=== PATIENT | male | born 1995 | race African-American/Black ===

== ENCOUNTER 2020-11-24 16:23 | Emergency (ER) | payer OTHER ==
[~2020-11-24] VITALS: Ht 182.9 cm; Wt 97.5 kg
[2020-11-24] MEDS ORDERED: NS 1,000 ML IV ONE (16:55)
[2020-11-24 17:39] LABS: BASO % 0.4 % (0.0-1.0); EOS # 0.1 10^3/uL (0.0-0.5); EOS % 1.2 % (0.0-3.0); HEMATOCRIT 49.5 % (42.0-52.0); LYMPH # 0.9 10^3/uL (1.5-5.0); LYMPH % 17.1 % (24.0-44.0); MEAN CORPUSCULAR HEMOGLOBIN 28.2 pg (27.0-33.0); MEAN CORPUSCULAR HGB CONC 32.3 g/dl (32.0-36.5); MEAN CORPUSCULAR VOLUME 87.3 fl (80.0-96.0); MONO # 0.6 10^3/uL (0.0-0.8); MONO % 11.7 % (2.0-8.0); NEUTROPHILS # 3.5 10^3/uL (1.5-8.5); NEUTROPHILS % 69.4 % (36.0-66.0); PLATELET COUNT, AUTOMATED 270 10^3/uL (150-450); RED BLOOD COUNT 5.67 10^6/uL (4.30-6.10)
[2020-11-24 18:04] LABS: ALBUMIN 3.9 GM/DL (3.2-5.2); ALT/SGPT 25 U/L (12-78); AMYLASE 63 U/L (25-115); BILIRUBIN,DIRECT 0.3 MG/DL (0.0-0.2); BLOOD UREA NITROGEN 16 MG/DL (7-18); CALCIUM LEVEL 8.7 MG/DL (8.5-10.1); CARBON DIOXIDE LEVEL 31 MEQ/L (21-32); CHLORIDE LEVEL 105 MEQ/L (98-107); CREATININE FOR GFR 1.17 MG/DL (0.70-1.30); GLOMERULAR FILTRATION RATE > 60.0 (>60); GLUCOSE, FASTING 76 MG/DL (70-100); LIPASE 77 U/L (73-393); SODIUM LEVEL 140 MEQ/L (136-145); TOTAL PROTEIN 7.6 GM/DL (6.4-8.2)
[2020-11-24] MEDS ORDERED: ZOFR4TAB16 PO (18:17)
[2020-11-24 18:57] VITALS: BP 135/71
== END 2020-11-24 18:59 | disposition home or self-care (01) ==
LOC: M ED 16:23
DX: R10.9 Unspecified abdominal pain (principal); R11.10 Vomiting, unspecified; R19.7 Diarrhea, unspecified

== ENCOUNTER 2021-03-15 15:18 | Emergency (ER) | payer OTHER ==
[~2021-03-15] VITALS: Ht 182.9 cm; Wt 95.5 kg
[~2021-03-15 15:18] MED LIST: ZOFR4TAB16 PO
[2021-03-15] MEDS ORDERED: IBUPROFEN 800 MG TAB PO ONE (19:05)
--- NOTE | 2021-03-15 19:52 | REP ---
INDICATION: trauma, lateral pain (recent surgery for tumor removal). COMPARISON: Left foot, 12/13/2015 TECHNIQUE: Four views of the left foot were obtained. FINDINGS: There is radiopaque material in the area of the inferolateral aspect of the cuboid, and this likely reflects the area of recent surgery. There is no evidence of fracture or dislocation. There is no significant arthropathy. There is no evidence of osteomyelitis. IMPRESSION: Apparent postoperative packing in the area of recent surgery at the lateral aspect of the cuboid, as described. <Electronically signed by Madhav Becerril > 03/15/211947
[2021-03-15 20:31] VITALS: BP 132/82
== END 2021-03-15 20:36 | disposition home or self-care (01) ==
LOC: M ED 15:18
DX: S93.602A Unspecified sprain of left foot, initial encounter (principal); Y92.009 Unspecified place in unspecified non-institutional (private) residence as the place of occurrence of the external cause; W01.0XXA Fall on same level from slipping, tripping and stumbling without subsequent striking against object, initial encounter; Y93.9 Activity, unspecified; Y99.9 Unspecified external cause status

== ENCOUNTER 2021-05-08 17:46 | Inpatient (IN) | payer OTHER ==
[~2021-05-08] VITALS: Ht 182.9 cm; Wt 98.3 kg
[2021-05-08] MEDS ORDERED: NS 1,000 ML IV SCH (17:55)
[2021-05-08 18:10] LABS: VENOUS BASE EXCESS -4.6 (-2.0-2.0); VENOUS HCO3 21.4 MEQ/L (23.0-27.0); VENOUS O2 SATURATION 90.4 % (60.0-80.0); VENOUS PARTIAL PRESSURE CO2 42.9 mmHg (38.0-50.0); VENOUS PARTIAL PRESSURE O2 60.3 mmHg (30.0-50.0); VENOUS PH 7.316 UNITS (7.330-7.430); VENOUS STANDARD HCO3 20.5 MEQ/L; VENOUS TOTAL CO2 22.7 MEQ/L (24.0-28.0)
[2021-05-08 18:24] LABS: BASO % 0.2 % (0.0-1.0); EOS % 0.2 % (0.0-3.0); HEMATOCRIT 46.5 % (42.0-52.0); HEMOGLOBIN 14.9 g/dl (13.5-17.5); LYMPH # 1.2 10^3/uL (1.5-5.0); LYMPH % 19.2 % (24.0-44.0); MEAN CORPUSCULAR HEMOGLOBIN 28.4 pg (27.0-33.0); MEAN CORPUSCULAR VOLUME 88.6 fl (80.0-96.0); MONO # 0.4 10^3/uL (0.0-0.8); MONO % 7.3 % (2.0-8.0); NEUTROPHILS # 4.4 10^3/uL (1.5-8.5); NEUTROPHILS % 72.9 % (36.0-66.0); PLATELET COUNT, AUTOMATED 303 10^3/uL (150-450); RED BLOOD COUNT 5.25 10^6/uL (4.30-6.10)
[2021-05-08 18:44] LABS: ACETAMINOPHEN LEVEL 3.1 UG/ML (10.0-30.0); ALT/SGPT 24 U/L (12-78); BILIRUBIN,DIRECT 0.2 MG/DL (0.0-0.2); BILIRUBIN,TOTAL 0.7 MG/DL (0.2-1.0); BLOOD UREA NITROGEN 12 MG/DL (7-18); CALCIUM LEVEL 9.2 MG/DL (8.5-10.1); CARBON DIOXIDE LEVEL 23 MEQ/L (21-32); CHLORIDE LEVEL 109 MEQ/L (98-107); ETHYL ALCOHOL (ETHANOL) < 0.003 % (0.000-0.010); GLOMERULAR FILTRATION RATE > 60.0 (>60); GLUCOSE, FASTING 90 MG/DL (70-100); POTASSIUM SERUM 4.2 MEQ/L (3.5-5.1); SALICYLATE LEVEL < 1.7 MG/DL (5.0-30.0); SODIUM LEVEL 141 MEQ/L (136-145); TOTAL PROTEIN 7.3 GM/DL (6.4-8.2)
--- NOTE | 2021-05-08 19:10 | REPVR ---
PROCEDURE INFORMATION: Exam: CT Head Without Contrast Exam date and time: 05/08/2021 6:33 PM Age: 25 years old Clinical indication: Altered mental status/memory loss TECHNIQUE: Imaging protocol: Computed tomography of the head without contrast. Radiation optimization: All CT scans at this facility use at least one of these dose optimization techniques: automated exposure control; mA and/or kV adjustment per patient size (includes targeted exams where dose is matched to clinical indication); or iterative reconstruction. COMPARISON: No relevant prior studies available. FINDINGS: Brain: Normal. No hemorrhage. Unremarkable white matter. No mass effect. Cerebral ventricles: No ventriculomegaly. Paranasal sinuses: Visualized sinuses are unremarkable. No fluid levels. Mastoid air cells: Visualized mastoid air cells are well aerated. Bones/joints: Unremarkable. No acute fracture. Soft tissues: Unremarkable. IMPRESSION: No acute intracranial abnormality. Electronically signed by: Lyssa De Leon On 05/08/2021 19:09:32 PM
--- OUTSIDE RECORDS SUMMARY | 2021-05-08 19:24 | CCD ---
Author Author [facility] Organization [facility] Address Unknown Phone Unavailable Care Team Providers Care Er Rn Name Role Phone YOLA JACOBS MD Unavailable Unavailable YOLA JACOBS MD Unavailable Unavailable YOLA JACOBS MD Unavailable Unavailable YOLA JACOBS MD Unavailable Unavailable YOLA JACOBS MD Unavailable Unavailable YOLA JACOBS MD Unavailable Unavailable YOLA JACOBS MD Unavailable Unavailable YOLA JACOBS MD Unavailable Unavailable YOLA JACOBS MD Unavailable Unavailable YOLA JACOBS MD Unavailable Unavailable YOLA JACOBS MD Unavailable Unavailable YOLA JACOBS MD Unavailable Unavailable YOLA JACOBS MD Unavailable Unavailable YOLA JACOBS MD Unavailable Unavailable YOLA JACOBS MD Unavailable Unavailable Yuniel Mijares MD Unavailable Unavailable Yuniel Mijares MD Unavailable Unavailable Yuniel Mijares MD Unavailable Unavailable Dyllan, Yuniel Corey MD Unavailable Unavailable Dyllan, Yuniel Corey MD Unavailable Unavailable Dyllan, Yuniel Corey MD Unavailable Unavailable Yuniel Mijares MD Unavailable Unavailable Yuniel Mijares MD Unavailable Unavailable Yuniel Mijares MD Unavailable Unavailable Yuniel Mijares MD Unavailable Unavailable Dyllan, Yuniel Corey MD Unavailable Unavailable Dyllan, Yuniel Corey MD Unavailable Unavailable Dyllan, Yuniel Corey MD Unavailable Unavailable Dyllan, Yuniel Corey MD Unavailable Unavailable Dyllan, Yuniel Corey MD Unavailable Unavailable Dyllan, Yuniel Corey MD Unavailable Unavailable Dyllan, Yuniel Corey MD Unavailable Unavailable Dyllan, Yuniel Corey MD Unavailable Unavailable Dyllan, Yuniel Corey MD Unavailable Unavailable Dyllan, Yuniel Corey MD Unavailable Unavailable Dyllan, Yuniel Corey MD Unavailable Unavailable Dyllan, Yuniel Corey MD Unavailable Unavailable Dyllan, A Madhav MD Unavailable Unavailable Dyllan, A Madhav MD Unavailable Unavailable Dyllan, A Madhav MD Unavailable Unavailable Dyllan, A Madhav MD Unavailable Unavailable Dyllan, A Madhav MD Unavailable Unavailable Dyllan, A Madhav MD Unavailable Unavailable Dyllan, A Madhav MD Unavailable Unavailable Dyllan, A Madhav MD Unavailable Unavailable Dyllan, A Madhav MD Unavailable Unavailable Dyllan, A Madhav MD Unavailable Unavailable Dyllan, A Madhav MD Unavailable Unavailable Dyllan, A Madhav MD Unavailable Unavailable Dyllan, A Madhav MD Unavailable Unavailable Dyllan, A Madhav MD Unavailable Unavailable Dyllan, A Madhav MD Unavailable Unavailable Dyllan, A Madhav MD Unavailable Unavailable Dyllan, A Mahdav MD Unavailable Unavailable Dyllan, A Madhav MD Unavailable Unavailable Dyllan, A Madhav MD Unavailable Unavailable Dyllan, A Madhav MD Unavailable Unavailable Dyllan, A Madhav MD Unavailable Unavailable Dyllan, A Madhav MD Unavailable Unavailable Dyllan, A Madhav MD Unavailable Unavailable Dyllan, A Madhav MD Unavailable Unavailable Dyllan, A Madhav MD Unavailable Unavailable Dyllan, A Madhav MD Unavailable Unavailable Dyllan, A Madhav MD Unavailable Unavailable Dyllan, A Madhav MD Unavailable Unavailable Dyllan, A Madhav MD Unavailable Unavailable Dyllan, A Madhav MD Unavailable Unavailable Dyllan, A Madhav MD Unavailable Unavailable Dyllan, A Madhav MD Unavailable Unavailable Dyllan, A Madhav MD Unavailable Unavailable Dyllan, A Madhav MD Unavailable Unavailable Dyllan, A Madhav MD Unavailable Unavailable Dyllan, A Madhav MD Unavailable Unavailable Dyllan, A Madhav MD Unavailable Unavailable Dyllan, A Madhav MD Unavailable Unavailable Dyllan, A Madhav MD Unavailable Unavailable Dyllan, A Madhav MD Unavailable Unavailable Dyllan, A Madhav MD Unavailable Unavailable Dyllan, A Madhav MD Unavailable Unavailable Dyllan, A Madhav MD Unavailable Unavailable Dyllan, A Madhav MD Unavailable Unavailable Dyllan, A Madhav MD Unavailable Unavailable Dyllan, A Madhav MD Unavailable Unavailable Dyllan, A Madhav MD Unavailable Unavailable Dyllan, A Madhav MD Unavailable Unavailable Dyllan, A Madhav MD Unavailable Unavailable Dyllan, A Madhav MD Unavailable Unavailable Dyllan, A Madhav MD Unavailable Unavailable Dyllan, A Madhav MD Unavailable Unavailable Dyllan, A Madhav MD Unavailable Unavailable Dyllan, A Madhav MD Unavailable Unavailable Dyllan, A Madhav MD Unavailable Unavailable Dyllan, A Madhav MD Unavailable Unavailable Dyllan, A Madhav MD Unavailable Unavailable Dyllan, A Madhav MD Unavailable Unavailable Dyllan, A Madhav MD Unavailable Unavailable Dyllan, A Madhav MD Unavailable Unavailable Dyllan, A Madhav MD Unavailable Unavailable Dyllan, A Madhav MD Unavailable Unavailable Dyllan, A Madhav MD Unavailable Unavailable Dyllan, A Madhav MD Unavailable Unavailable Dyllan, A Madhav MD Unavailable Unavailable Dyllan, A Madhav MD Unavailable Unavailable Dyllan, A Madhav MD Unavailable Unavailable Dyllan, A Madhav MD Unavailable Unavailable Dyllan, A Madhav MD Unavailable Unavailable Dyllan, A Madhav MD Unavailable Unavailable Dyllan, A Madhav MD Unavailable Unavailable Dyllan, A Madhav MD Unavailable Unavailable Dyllan, A Madhav MD Unavailable Unavailable Dyllan, A Madhav MD Unavailable Unavailable Dyllan, A Madhav MD Unavailable Unavailable Dyllan, A Madhav MD Unavailable Unavailable Dyllan, A Madhav MD Unavailable Unavailable Dyllan, A Madhav MD Unavailable Unavailable Dyllan, A Madhav MD Unavailable Unavailable Dyllan, A Madhav MD Unavailable Unavailable Dyllan, A Madhav MD Unavailable Unavailable Dyllan, A Madhav MD Unavailable Unavailable Dyllan, A Madhav MD Unavailable Unavailable Dyllan, A Madhav MD Unavailable Unavailable Dyllan, A Madhav MD Unavailable Unavailable Dyllan, A Madhav MD Unavailable Unavailable Dyllan, A Madhav MD Unavailable Unavailable Dyllan, A Madhav MD Unavailable Unavailable Dyllan, A Madhav MD Unavailable Unavailable Dyllan, A Madhav MD Unavailable Unavailable Dyllan, A Madhav MD Unavailable Unavailable Dyllan, A Madhav MD Unavailable Unavailable Dyllan, A Madhav MD Unavailable Unavailable Dyllan, A Madhav MD Unavailable Unavailable Dyllan, A Madhav MD Unavailable Unavailable Dyllan, A Madhav MD Unavailable Unavailable Re-disclosure Warning The records that you are about to access may contain information from federally-assisted alcohol or drug abuse programs. If such information is present, then the following federally mandated warning applies: This information has been disclosed to you from records protected by federal confidentiality rules (42 CFR part 2). The federal rules prohibit you from making any further disclosure of this information unless further disclosure is expressly permitted by the written consent of the person to whom it pertains or as otherwise permitted by 42 CFR part 2. A general authorization for the release of medical or other information is NOT sufficient for this purpose. The Federal rules restrict any use of the information to criminally investigate or prosecute any alcohol or drug abuse patient.The records that you are about to access may contain highly sensitive health information, the redisclosure of which is protected by Article 27-F of the [facility] Public Health law. If you continue you may have access to information: Regarding HIV / AIDS; Provided by facilities licensed or operated by the [facility] Office of Mental Health; or Provided by the [facility] Office for People With Developmental Disabilities. If such information is present, then the following [facility] mandated warning applies: This information has been disclosed to you from confidential records which are protected by state law. State law prohibits you from making any further disclosure of this information without the specific written consent of the person to whom it pertains, or as otherwise permitted by law. Any unauthorized further disclosure in violation of state law may result in a fine or alf sentence or both. A general authorization for the release of medical or other information is NOT sufficient authorization for further disc losure. Encounters Encounter Providers Location Date Indications Data Source(s ) Outpatient Attender: Madhav Mijares MD 07/01/2021 12:00:00 AM [facility] Outpatient Referrer: Madhav Mijares MD 04/22/2021 12 :00:00 AM EDT Neoplasm of uncertain behavior of connective and other soft tissue [facility] Neoplasm of uncertain behavior of connec tive and other soft tissue Outpatient Attender: Madhav BRIONESeferrer: EDWAR JACOBS MD [id number] 04/22/2021 12:00:00 AM [facility] Outpatient Attender: Madhav BRIONESeferrer: EDWAR JACOBS MD [id number] 03/22/2021 12:00:00 AM [facility] Outpatient Referrer: Madhav Mijares MD 03/06/2021 09 :00:00 AM EDT Other specified soft tissue disorders [facility] Other specified soft tissue disorders Outpatient 03/06/2021 12:00:00 AM [facility] Outpatient Attender: Madhav Elizondoerrer: EDWAR JACOBS MD [id number] 02/01/2021 12:00:00 AM [facility] Outpatient Referrer: Madhav Mijares MD 01/21/2021 12 :00:00 AM EDT Other specified soft tissue disorders [facility] Other specified soft tissue disorders Outpatient Attender: Madhav Mijares MDReferrer: EDWAR JACOBS MD [id number] 01/04/2021 12:00:00 AM EDT [facility] Outpatient Referrer: Madhav Mijares MD 01/04/2021 12 :00:00 AM EDT Disorder of bone, unspecified [facility] Disorder of bone, unspecified Outpatient Referrer: Madhav Mijares MD 01/04/2021 12 :00:00 AM EDT Disorder of bone, unspecified [facility] Disorder of bone, unspecified Outpatient Attender: Madhav Mijares MDReferrer: EDWAR JACOBS MD [id number] 12/03/2020 12:00:00 AM EDT [facility] Immunizations Vaccine Date Status Description Data Source(s) COVID-19 VACCINE Moderna 11/15/2020 12:00:00 AM EDT completed [facility] Vaccine Series Complete: YESThis Data wa s Submitted to [facility] Via [facility]. COVID-19 VACCINE Moderna 10/18/2020 12:00:00 AM EDT completed [facility] Vaccine Series Complete: NOThis Data was Submitted to [facility] Via [facility]. Medications No Information Insurance Providers Payer name Policy type / Coverage type Policy ID Covered libertarian ID Covered libertarian's relationship to sin Policy Sin Plan Information [facility] U [id number] Self [id number] [facility] F [id number] SELF [id number] [facility] F [id number] SELF [id number] [facility] Claims F [id number] SELF [id number] [facility] U [id number] Self [id number] [facility] O [id number] S [id number] [facility] ACTIVE DUTY [id number] SP [id number] [facility] ACTIVE DUTY [id number] SP [id number] Problems, Conditions, and Diagnoses Code Display Name Description Problem Type Effective Dates Data Source(s) M89.9 Disorder of bone, unspecified Disorder of bone, unspec ified Diagnosis 04/22/2021 07:41:02 AM EDT [facility] M79.89 Other specified soft tissue disorders Ot her specified soft tissue disorders Diagnosis 04/22/2021 07:41:02 AM EDT [facility] 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 Diagnosis 04/22/2021 07:41:02 AM [facility] Surgeries/Procedures Procedure Description Date Indications Data Source(s) SURGERY CASE REQUEST OUTSIDE FACILITY ONLY <td>SURGERY CASE REQUEST OUTSIDE FACILITY ONLY</td><td>Routine</td><td>02/01/2021 4:40 PM EDT</td><td> Bone lesion Soft tissue 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</td><td></td> 02/01/2021 04:40:28 PM EDT Giant cell tumor of tendon sheathSoft tissue massBone lesion [facility] 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 tissue mass Bone lesion Results ID Date Data Source [id number] 04/22/2021 08:04:40 AM EDT [facility] XR FOOT 3 OR MORE VIEWS [id number] RESUL TInterpreted by:Madhav Mijares MDIndication: Status post removal of recurrent giant cell tumor tendon sheath/pigmented villonodular synovitis lateral aspect left footTechnique: 3 view x-rays left footComparison: January 04, 2021 x-raysFindings: When compared to prior preoperative x-rays, the irregularity of the lateral aspect of the cuboid is unchanged, but now, lateral to the cuboid there is an area of soft tissue mineralization most suggestive of residual graft material, although the possibility of heterotopic ossification exists as well. Clinical correlation suggested. No acute findings.Impression: Postoperative changes following surgical procedure lateral aspect left forefootThis document has been electronically signed by Madhav Mijares MD on 04/22/2021 8:04 AM Name Value Range Interpretation Code Description Data Taylor rce(s) Supporting Document(s) ID Date Data Source [id number] 04/22/2021 07:53:48 AM T [facility] Name Value Range Interpretation Code Description Data Taylor rce(s) Supporting Document(s) Progress Note [facility] PXFAWl9wMmOGUbLj40/GLYqlZVPib5IpPHlbSYe9BWlzEKRyY6BpIUE4aC1sVWX7QTtXUxFpLyYzHPEw lbm [file] sede8np4578htM7H58qROma4c4fEAQ3HFcRG65a68g UkyXW6z9zTNxcXLrjO2pa88VCOS6L39w173yxwusFu1D4YQi4zOwKD42YEiZMyp43CXTIR2Qs1j5ANWV r4WXz9uk1Dtnt+DYE TUB OPERATOR+FnB1FP4z1H/+0c2Za5g2Br6+eSY8ECK2VmCu6GZztes8LxsVStf1sC/MmqoVqym [file] ICAgICAgICAgICAgICAgICAgICAgICAgICAgICAgICAgICAgICAgICAgICAgICAgICAgICAgICAgICAg ICAgICAgICAgICAgICAgICAgICAgICAgICAgICAgICANCiAgICAgICAgICAgICAgICAgICAgICAgICAg ICAgICAgICAgICAgICAgICAgICAgICAgICAgICAgIC AgICAgICAgICAgICAgICAgICAgICAgICAgICAgICAgICAgICAgICAgICANCiAgICAgICAgICAgICAgIC AgICAgICAgICAgICAgICAgICAgICAgICAgICAgICAgICAgICAgICAgICAgICAgICAgICAgICAgICAgIC AgICAgICAgICAgICAgICAgICAgICAgICANCiAgICAg ICAgICAgICAgICAgICAgICAgICAgICAgICAgICAgICAgICAgICAgICAgICAgICAgICAgICAgICAgICAg ICAgICAgICAgICAgICAgICAgICAgICAgICAgICAgICAgICANCiAgICAgICAgICAgICAgICAgICAgICAg ICAgICAgICAgICAgICAgICAgICAgICAgICAgICAgIC AgICAgICAgICAgICAgICAgICAgICAgICAgICAgICAgICAgICAgICAgICAgICANCiAgICAgICAgICAgIC AgICAgICAgICAgICAgICAgICAgICAgICAgICAgICAgICAgICAgICAgICAgICAgICAgICAgICAgICAgIC AgICAgICAgICAgICAgICAgICAgICAgICAgICANCiAg ICAgICAgICAgICAgICAgICAgICAgICAgICAgICAgICAgICAgICAgICAgICAgICAgICAgICAgICAgICAg ICAgICAgICAgICAgICAgICAgICAgICAgICAgICAgICAgICAgICANCiAgICAgICAgICAgICAgICAgICAg ICAgICAgICAgICAgICAgICAgICAgICAgICAgICAgIC AgICAgICAgICAgICAgICAgICAgICAgICAgICAgICAgICAgICAgICAgICAgICAgICANCiAgICAgICAgIC AgICAgICAgICAgICAgICAgICAgICAgICAgICAgICAgICAgICAgICAgICAgICAgICAgICAgICAgICAgIC AgICAgICAgICAgICAgICAgICAgICAgICAgICAgICAN CiAgICAgICAgICAgICAgICAgICAgICAgICAgICAgICAgICAgICAgICAgICAgICAgICAgICAgICAgICAg ICAgICAgICAgICAgICAgICAgICAgICAgICAgICAgICAgICAgICAgICANCjw/vIVyP9clnVKradP3J9ik Ew8UWs7ROH1tb1BnKEQsGIxvciViGbyNIkFmANOsYi lDUph8EZwhNN8ZtWRsH7KwO9JjSQhkUI1HDAEtWIQlfLUlYSCiWBEsWjM9UFPaBFvsJH9GgFEoRAuqDA ZmOGOhBeYoMIInCR2ICOVdY235mqOjEz3IEb0TSxEeGI9vcj1PIwSjUNHfUueSVjn2ORohRH7UsKJzkH MjSgKwUNSZCqFjS7ifa1DcBkMyCEDLETnrMZ8Hr0Fj dCAxDQo+Dk5OHL4pv6OlWVgyZqBsIF4smm5IMSyVSqSjT8BoyMnxUIIbf4mrCKIdTW9ypNSvCWG1OMTt fbwcdT8rlRIeFWbbJo0kkyZjaobdZHIrUJPkILIiIA3hMHUwJQN2CdUtYRXNOA1DRLIxGJQawRFvSFZa FMJFUY5IXWypCUR4TDHrmsBmiIHaYYieJR7VKFFjvk QgMjEgMCBSDQo+Mq8WJQ1ca7CvIOpfJhGdTG5kvq8FHVyINtFuB8O1hWLpI0B9BJljHe6NVAMvAKLwXY ddYGFVMSotZV8UJB9hgyP0XA4UgBReOBZbNDJvyDRkPXt8N49tbIDtQTprTW7OQVR+Subhash+Sd2MFGVoYJ TnDMBkBpEcPYHPVeCuO8GwS3VPd3EhE4HbNO84vImw rqPvBFhkRC5TQP7qVPEmVDJWEO9PsSMosQ7vwcYnSTOdXUMMCbEwQ72lwZGpHKCuNAEkUVQsUx8HSDXn E5GpjyYtgEtfqvHzCACzJLPDPJ4ZGVpiidLfzOQefQnlJP41rKtyWW2YQm2NEyNoAR9sku7TsSPaZw0I KLKnIZ0HXRBbKZUiHEFvKRI9PAYoXmTgLYynANFjGU EhOFC5GUFjIUJxUP2GTbIzXBQfMvX4DizgLKSwSKWtnp2JMUEqGZDfDMJ3VXGvVKPdNZYiNIwoXWNnQH BcBYQ5VBUuHCIzUW5PEuLqILMzRKBeVPOsENPvHTYqhq3KFKGdWNCtYWVlDGQdWAXaSAWaQNbqUIDhZL S0LUC2EPNiVMYaCH0USwGzJZDbQWS6KbAnOXNjVTUl oe3DKGOmLEOkZhG4XNFhRAXdFRAoIQiiEBOuXLK0Voe4AOJfMWWnJE2MTlYwZEOyIEG8LrroKJWpRZTe bh9OTVToLDEtNzlhJdIpUETeVRGyXRekIAExHJC3MRE2INNhKSIzOJ9VTsSjRZCsGCsyHBecXFEnKHYl hg9XSTGyGXMqSMlrRQBqWIXfIYQzVCvfVXWcYMPdRx j6XQNeZJOjYI0OIwSnQHZaTzW0MSebQZQfWRUlwn8DIJVjEQFeSdsrJYIbZPFmLDQpDBsqEZHcYFLaPV P1XNSkGGHeWD7VJiRsCBQfEpPsKKwlAGAwUBSnqo1NVKIfYUJuRDn9WgMvODRfDFIgTTxzEUJuRDB4YY ZpJNQtBJGyTA4ZTfUjCIOrRhFdOAlbZTXuVPAyeq1A nKKjwZpvne1FSCuQEy7CzOkpEUJ1HOfkKq2eyFKuAxTpAWVGCk8IavFdVBEhBANNMTgbDCZgDIS5NGIa MuX3XWmzPJAyZFT8CBDjIMH4TZn7MBEeZLJ3SjU4ZNf6AtQpURchLYHjMvEuZtYuJxGaDvo8UCb3VQGn YjY+ES1lDQs+Xp5Ev9UdooE1ndRoAPaeLFJ9Rp2ZTSGJR7WVAt== ID Date Data Source [id number] 03/22/2021 11:21:41 AM EDT [facility] Name Value Range Interpretation Code Description Data Taylor rce(s) Supporting Document(s) Progress Note [facility] FBCMBi5bZvGMXyNc97/GNFtcTTTza7FfORddCSq7FPukMQOjL2FwVEP1kQ3bZNP0DWuGZwVjDuStSCVk lbm [file] N5Hor5SoPeWX7NAs5YSsZ5PGJ5sKFjIn9ERcz0XfyJMlLiXG3KIVv= ID Date Data Source [id number] 02/01/2021 04:41:49 PM EDT [facility] Name Value Range Interpretation Code Description Data Taylor rce(s) Supporting Document(s) Progress Note [facility] XACZNn1mJzROFhYk75/DLUpwGDXru9WhTSlfCUs7CTuyVOUgA1EpYGS7fA7xBLW3WVzKBdRrQiVeCNNs lbm [file] ID Date Data Source [id number] 01/21/2021 02:04:10 PM EDT [facility] MR EXTREMITY LOWER WITH AND WITHOUT CONT RAST [id number] RESULTInterpreted by:Douglas Bolden MDEXAM: LEFT ANKLE MRI WITHOUT AND WITH IV ENHANCEMENTINDICATION: 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 Patient has recurrent symptoms suggesting recurrent tumor however no palpable masses.Prior exam: January 04, 2021 radiographs. Outside MRI January 10, 2016.IV contrast: 20 mL MultiHance IV without immediate complicationTECHNIQUE: 3 plane imaging performed of the ankle and hindfoot/midfoot utilizing various pulse sequences before and after IV contrast administration.FINDINGS:Soft tissue findings: There is an irregularly marginated soft tissue enhancing mass that partially engulfs much of the distal peroneus longus tendon starting as it curves caudal to the distal calcaneus and passes deep to the cuboid. The soft tissue mass erodes into the plantar surface of the cuboid.. The soft tissue component of the mass extends more distally along the course of the peroneus longus ending at its attachment at the base of the first metatarsal. The process has an enhancing component insinuates itself dorsally between the first and second proximal metatarsals just distal to the the Lisfranc ligament.tendons: Unremarkable appearance the peroneus brevis tendon. Unremarkable posterior tibialis, flexor digitorum longus, flexor hallucis longus tendons. Unremarkable Achilles. Normal extensor tendons. ligaments: Normal anterior talofibular ligament. Unremarkable calcaneofibular ligament. Normal anterior posterior tibiofibular ligaments. Unremarkable superfi cial fibers proximal deltoid ligament. Normal deep fibers deltoid ligament.Osseous/joints: No other erosions seen other than the plantar surface of the proximal cuboid. Normal marrow signal characteristics the bones of the hindfoot and midfoot.ankle mortice: Small ankle mortise joint effusion. No osteochondral lesions.plantar fascia: Normal plantar fascia.sinus tarsi:No soft tissue masses. No fibrotic or edematous changes.tarsal tunnel: Normal without soft tissue mass. No evidence for atrophy or denervation of the tarsal tunnel muscles including abductor hallucis, quadratus plantae, flexor digitorum and abductor digiti minimi. IMPRESSION: The patient has an extensive soft tissue enhancing mass that tracks along and partially engulfs much of the distal peroneus longus tendon. In addition, a component of the mass has infiltrated into the plantar proximal surface of the cuboid. Findings consistent with, but not specific for, recurrent giant cell tumor. This document has been electronically signed by Douglas Bolden MD on 01/21/2021 2:01 PM Name Value Range Interpretation Code Description Data Taylor rce(s) Supporting Document(s) ID Date Data Source [id number] 01/04/2021 08:18:58 AM EDT [facility] Name Value Range Interpretation Code Description Data Taylor rce(s) Supporting Document(s) Progress Note [facility] CZJPSk3zZxAGIwTz71/KUQrhNOGtg7WeJWwtTMn2MBzrALQcQ1IpGHR6jM8vUBW5APhRUmQnWiDzQlN1 lbm [file] M2MkpjLzCqDEF+BJ7fXPi+If6Ol2QoklJ5oySgRNccCMB1JW6RAGHPR5KUIz== ID Date Data Source [id number] 01/04/2021 08:00:59 AM EDT [facility] XR ANKLE 2 VIEWS [id number] RESULTInterp reted by:Madhav Mijares MDIndication: History of local recurrent giant cell tumor of tendon sheath dorsal aspect left footTechnique: 2 views left ankleComparison: April 2017 x-rays left foot, 2016 MRIFindings: Ankle joint spaces well-preserved. No acute findings. Perhaps a slight cystic lesion on the medial aspect of the distal fibula, although this may be simply a variant of normal. Clinical correlation suggested. No evidence of obvious bony erosions elsewhere.Impression: Essentially normal left ankle x-ray. Correlate with MRI if available.This doc ument has been electronically signed by Madhav Mijares MD on 01/04/2021 8:00 AM Name Value Range Interpretation Code Description Data Taylor rce(s) Supporting Document(s) ID Date Data Source [id number] 01/04/2021 07:58:53 AM EDT [facility] XR FOOT 3 OR MORE VIEWS [id number] RESUL TInterpreted by:Madhav Mijares MDIndication: Recurrent PVNS/giant cell tumor of tendon sheath left dorsal footTechnique: 3 views left footComparison: MRI from May 25, 2017Findings: No evidence of obvious soft tissue mass on plain film. Joint spaces well- preserved. No acute findings.Impression: Essentially normal left foot x-rays. Correlate with current MRI if available.This document has been electronically signed by Madhav Mijares MD on 01/04/2021 7:58 AM Name Value Range Interpretation Code Description Data Taylor rce(s) Supporting Document(s) ID Date Data Source [id number] 11/30/2020 04:07:53 PM EDT [facility] Name Value Range Interpretation Code Description Data Taylor rce(s) Supporting Document(s) Progress Note [facility] ZCDCIb1sNuJPRfDz95/VNVadANCtg5OsJAzdYPw6ZEfmBVViM1ZlIGW2qA6pONV5JSpUYtDqViEpUiXr lbm [file] SzXNymLSOfTVE6YdQ6RkOjY9FjBjHfRJ1EMq2QEtA2GPJ2zYTyRo1ESmM2WVZTBpNsXY1NBSy= Procedure Social History Code Duration Value Status Description Data Source(s ) Alcohol intake 01/04/2021 12:00:00 AM EDT Current non-d kaveh of alcohol (finding) completed Current non-drinker of alcohol (finding) [facility] Tobacco use and exposure 01/04/2021 12:00:00 AM EDT Never used co mpleted Never used [facility] Smoking 01/04/2021 12:00:00 AM EDT Never smoker completed Never s [facility]
--- OUTSIDE RECORDS SUMMARY | 2021-05-08 19:24 | CCD | Summary of Care ---
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 documented as of this encounter (statuses as of 03/08/2021) Immunizations Name Administration Dates Next Due documented as of this encounter Social History Date Tobacco Use Types Packs/Day Years Used Never Smoker Smokeless Tobacco: Never Used Comments Alcohol Use Standard Drinks/Week No 0 (1 standard drink = 0.6 o z pure alcohol) Sex Assigned at Date Recorded Not on file documented as of this encounter Last Filed Vital Signs Not on filedocumented in this encounter Plan of Treatment Care Team Description Date Type Specialty Madhav Mijares MD [address] [place] [id number] [phone] 03/22/2021 Office Visit Orthopedic Surgery Date/Time Name Type Priority Associated Diag noses 03/07/2021 9:45 AM EDT Surgical Pathology Exam Pathology and Routine ( Only) Cytology Order Schedule Name Type Priority Associated Diag noses Once for 1 Occurrences starting 03/06/20 21 until 03/06/2021 Surgical Pathology Exam Pathology and Routine ( Only) Cytology Health Maintenance Due Date Last Done Comments MMR Vaccines ( - 1996 Standard series) Varicella Vaccines (1996 2 - 2-dose childhood series) DTaP,Tdap,and Td Vaccines 2002 (1 - Tdap) HIV Screening 2008 Influenza Vaccine 03/22/2021 Pneumococcal Vaccine: 65+ 2060 Years (1 of 1 - PPSV23) COVID-19 Vaccine Completed 11/15/2020, 10/18/2020 HIB Vaccines Aged Out No longer eligible based on patient's age to complete this topic Hepatitis A Vaccines Aged Out No longer eligibl e based on patient's age to complete this topic Hepatitis B Vaccines Aged Out No longer eligibl e based on patient's age to complete this topic IPV Vaccines Aged Out No longer eligible based on patient's age to complete this topic Pneumococcal Vaccine: Aged Out No longer eligib le based on patient's age to Pediatrics (0 to 5 Years) complete this topic and At-Risk Patients (6 to 64 Years) documented as of this encounter Results Not on filedocumented in this encounter
[2021-05-08 19:41] LABS: VENOUS BASE EXCESS -1.5 (-2.0-2.0); VENOUS HCO3 25.3 MEQ/L (23.0-27.0); VENOUS O2 SATURATION 85.3 % (60.0-80.0); VENOUS PARTIAL PRESSURE CO2 50.2 mmHg (38.0-50.0); VENOUS PARTIAL PRESSURE O2 50.9 mmHg (30.0-50.0); VENOUS STANDARD HCO3 22.9 MEQ/L; VENOUS TOTAL CO2 26.8 MEQ/L (24.0-28.0)
[2021-05-08 19:55] LABS: INR 1.07; PROTHROMBIN TIME 14.4 SECONDS (12.7-14.5)
[2021-05-08 20:02] LABS: AMPHETAMINES LEVEL URINE NEGATIVE (NEGATIVE); BARBITURATES URINE NEGATIVE (NEGATIVE); BENZODIAZEPINES URINE NEGATIVE (NEGATIVE); CANNABINOIDS URINE NEGATIVE (NEGATIVE); COCAINE METABOLITE URINE NEGATIVE (NEGATIVE); METHADONE URINE NEGATIVE (NEGATIVE); OPIATES URINE POSITIVE (NEGATIVE); PHENCYCLIDINE URINE NEGATIVE (NEGATIVE)
--- OUTSIDE RECORDS SUMMARY | 2021-05-08 20:14 | CCD ---
Author Author [facility] Address Unknown Phone Unavailable Care Team Providers Care Forder Operator Name Role Phone Dyllan, Yuniel Corey MD Unavailable Unavailable Dyllan, [...] Unavailable Dyllan, A Madhav MD Unavailable Unavailable JACOBS, YOLA VANN MD Unavailable Unavailable JACOBS, YOLA VANN MD Unavailable Unavailable JACOBS, YOLA VANN MD Unavailable Unavailable JACOBS, YOLA VANN MD Unavailable Unavailable JACOBS, YOLA VANN MD Unavailable Unavailable JACOBS, YOLA VANN MD Unavailable Unavailable JACOBS, YOLA VNAN MD Unavailable Unavailable JACOBS, YOLA VANN MD Unavailable Unavailable JACOBS, YOLA VANN MD Unavailable Unavailable JACOBS, YOLA VANN MD Unavailable Unavailable JACOBS, YOLA VANN MD Unavailable Unavailable JACOBS, YOLA VANN MD Unavailable Unavailable JACOBS, YOLA VANN MD Unavailable Unavailable JACOBS, YOLA VANN MD Unavailable Unavailable JACOBS, YOLA VANN MD Unavailable Unavailable Re-disclosure Warning The records [...] is protected by Article 27-F of the [facility] Public Health law. If you continue you may have access to information: Regarding HIV / AIDS; Provided by facilities licensed or operated by the [facility] Office of Mental Health; or Provided by the [facility] Office for People With Developmental Disabilities. If such information is present, then the following [facility] mandated warning applies: This information has been [...] law may result in a fine or custodial sentence or both. A general authorization for the release of medical or other information is NOT sufficient authorization for further disc losure. Encounters Encounter Providers Location Date Indications Data Source(s ) Outpatient Attender: Madhav Mijares MD 07/01/2021 12:00:00 AM [facility] Outpatient Referrer: Madhav Mijares MD 04/22/2021 12 :00:00 AM EDT Neoplasm of uncertain behavior of connective and other soft tissue [facility] Neoplasm of uncertain behavior of connec tive and other soft tissue Outpatient Attender: Madhav Mijares MDReferrer: EDWAR JACOBS MD [id number] 04/22/2021 12:00:00 AM [facility] Outpatient Attender: Madhav Mijares MDReferrer: EDWAR JACOBS MD [id number] 03/22/2021 12:00:00 AM [facility] Outpatient Referrer: Madhav Mijares MD 03/06/2021 09 :00:00 AM EDT Other specified soft tissue disorders [facility] Other specified soft tissue disorders Outpatient 03/06/2021 12:00:00 AM [facility] Outpatient Attender: Madhav BRIONESeferrer: EDWAR JACOBS MD [id number] 02/01/2021 12:00:00 AM [facility] Outpatient Referrer: Madhav Mijares MD 01/21/2021 12 :00:00 AM EDT Other specified soft tissue disorders [facility] Other specified soft tissue disorders Outpatient Attender: Madhav Mijares MDReferrer: EDWAR JACOBS MD [id number] 01/04/2021 12:00:00 AM EDT [facility] Outpatient Referrer: Madhav Mijares MD 01/04/2021 12 :00:00 AM EDT Disorder of bone, unspecified [facility] Disorder of bone, unspecified Outpatient Referrer: Madhav Mijares MD 01/04/2021 12 :00:00 AM EDT Disorder of bone, unspecified [facility] Disorder of bone, unspecified Outpatient Attender: Madhav Mijares MDReferrer: EDWAR JACOBS MD [id number] 12/03/2020 12:00:00 AM EDT [facility] Immunizations Vaccine Date Status Description Data Source(s) COVID-19 VACCINE Moderna 11/15/2020 12:00:00 AM EDT completed [facility] Vaccine Series Complete: YESThis Data wa s Submitted to [facility] Via [employer]. COVID-19 VACCINE Moderna 10/18/2020 12:00:00 AM EDT completed [facility] Vaccine Series Complete: NOThis Data was Submitted to [facility] Via [employer]. Medications No Information Insurance Providers Payer name Policy type / Coverage type Policy ID Covered republican ID Covered republican's relationship to jaimes Policy Jaimes Plan Information [facility] U [id number] Self [id number] [facility] F [id number] SELF [id number] [facility] F [id number] SELF [id number] [facility] Claims F [id number] SELF [id number] [facility] U [id number] Self [id number] [facility] O [id number] S [id number] [facility] ACTIVE DUTY [id number] SP [id number] [facility] ACTIVE DUTY [id number] SP [id number] Problems, Conditions, and Diagnoses Code Display Name Description Problem Type Effective Dates Data Source(s) M89.9 Disorder of bone, unspecified Disorder of bone, unspec ified Diagnosis 04/22/2021 07:41:02 AM EDT [facility] M79.89 Other specified soft tissue disorders Ot her specified soft tissue disorders Diagnosis 04/22/2021 07:41:02 AM EDT [facility] 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 Diagnosis 04/22/2021 07:41:02 AM [facility] Surgeries/Procedures Procedure Description Date Indications Data Source(s) SURGERY CASE REQUEST OUTSIDE FACILITY ONLY <td>SURGERY CASE REQUEST OUTSIDE FACILITY ONLY</td><td>Routine</td><td>02/01/2021 4:40 PM EDT</td><td> Bone lesion Soft tissue 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</td><td></td> 02/01/2021 04:40:28 PM EDT Giant cell tumor of tendon sheathSoft tissue massBone lesion [facility] 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 tissue mass Bone lesion Results ID Date Data Source [id number] 04/22/2021 08:04:40 AM EDT [facility] XR FOOT 3 OR MORE VIEWS [id number] RESUL TInterpreted by:Madhav Mijares MDIndication: Status post [...] rce(s) Supporting Document(s) ID Date Data Source [id number] 04/22/2021 07:53:48 AM EDT [facility] Name Value Range Interpretation Code Description Data Taylor rce(s) Supporting Document(s) Progress Note [facility] SGVXDe6nNkYGQfNx67/NCMefDAMxm4BsAPboQVo2COcbGMHtO9QpQDQ3aO4sSCK7QJySYgVyKqKbOUNj lbm [file] ahsy9ty9442mcB3N86hUBcv4k6eRJX1KNiQF06q31m JzsZB9l2pJYeqCGfxC8qa24OIQY5A24v063tslqsCg5S3BRb8mLjEE75WCsGWog42WFGPE9Os2m6AANW z1WEc1md1Tdwp+SALES PROFESSIONAL BILINGUAL+AlD0DO6d3S/+9v7Pt9y2Kj1+yJI8HCX1QfFy1YIoheu8TukFCla0eI/MmqoVqym [file] ICAgICAgICAgICAgICAgICAgICAgICAgICAgICAgICAgICAgICAgICAgICAgICAgICAgICAgICAgICAg ICAgICAgICAgICAgICAgICAgICAgICAgICAgICAgICANCiAgICAgICAgICAgICAgICAgICAgICAgICAg ICAgICAgICAgICAgICAgICAgICAgICAgICAgICAgIC AgICAgICAgICAgICAgICAgICAgICAgICAgICAgICAgICAgICAgICAgICANCiAgICAgICAgICAgICAgIC AgICAgICAgICAgICAgICAgICAgICAgICAgICAgICAgICAgICAgICAgICAgICAgICAgICAgICAgICAgIC AgICAgICAgICAgICAgICAgICAgICAgICANCiAgICAg ICAgICAgICAgICAgICAgICAgICAgICAgICAgICAgICAgICAgICAgICAgICAgICAgICAgICAgICAgICAg ICAgICAgICAgICAgICAgICAgICAgICAgICAgICAgICAgICANCiAgICAgICAgICAgICAgICAgICAgICAg ICAgICAgICAgICAgICAgICAgICAgICAgICAgICAgIC AgICAgICAgICAgICAgICAgICAgICAgICAgICAgICAgICAgICAgICAgICAgICANCiAgICAgICAgICAgIC AgICAgICAgICAgICAgICAgICAgICAgICAgICAgICAgICAgICAgICAgICAgICAgICAgICAgICAgICAgIC AgICAgICAgICAgICAgICAgICAgICAgICAgICANCiAg ICAgICAgICAgICAgICAgICAgICAgICAgICAgICAgICAgICAgICAgICAgICAgICAgICAgICAgICAgICAg ICAgICAgICAgICAgICAgICAgICAgICAgICAgICAgICAgICAgICANCiAgICAgICAgICAgICAgICAgICAg ICAgICAgICAgICAgICAgICAgICAgICAgICAgICAgIC AgICAgICAgICAgICAgICAgICAgICAgICAgICAgICAgICAgICAgICAgICAgICAgICANCiAgICAgICAgIC AgICAgICAgICAgICAgICAgICAgICAgICAgICAgICAgICAgICAgICAgICAgICAgICAgICAgICAgICAgIC AgICAgICAgICAgICAgICAgICAgICAgICAgICAgICAN CiAgICAgICAgICAgICAgICAgICAgICAgICAgICAgICAgICAgICAgICAgICAgICAgICAgICAgICAgICAg ICAgICAgICAgICAgICAgICAgICAgICAgICAgICAgICAgICAgICAgICANCjw/xFKfK5dgbSUevdI0L1ix Xm7KJr3PRZ1ag9AsGVQyTSbgvoJwQycZRgZmYSRvPa cCEch8MYyqZL5RzTFkE9XvA5TpEZvpRA0QWOAjLZWqqRWzFDLyOANhScR6NRXfHUkkFL2LhALvWAylRB EtRVZpOgQcKMXrBN5RMVLrJ894cdCkUz2KDi6NBtNgPN6edt4REnSbSXTvKurXWme5VNjmXT0NyQYjoB KvTdGhQXTJPcLpN1eqz3SgKfQhRSUGLNxaTT8Me7Tb dCAxDQo+Dj7GWV8lg4DxKYoqVgAdDM8ycf1MYNuWWbEwB0FfnZlxVEJgs1fwZWAoYK1zkACtCNJ3ETBe ifxneM2vjXMiYWevAi5xkoUjrspgDYWoFWBmVAQcKK5zDFLwHKV7PoOgCRKQCR7GBELzTPWalKZnTLUc XDTHVV7ASLcaRPA9DQNzxqRbkIRiGMtxVM9HBYOnwk QgMjEgMCBSDQo+Sq0FAO2vx8DmJDtfUbAmIN9yvf2WNUpBTqEzM0V2lMSsQ3I2RMwfHh9SJOFxRFTgWO bgRBEIPVmjBP4VXL4vioB5TG4QaBGaYCNhACPsvTQsFOg2I13upEPxNGryLV9CAFH+Subhash+Wu1FYSGuME GnLXMdYnOvMWEXUbXgC9SgB5WXm3ReF3YtKZ13mRip ieCbEQuzSA6UXP2vASVzODQKCT8LkTSptQ5fxmOfECDhGTNPIzKbJ17ciCPzTKPwRNWyYDPdEd0CMTQw O2IkypCvuKuazvXvTCPgBZEHYD9UHByjshGkpAXbuLueDK20yKfaGL2GIq9EShWfFF9dhk5DdLOyWs0C YNItBM7NQCCrHMDlQYSnGTG5DYTjYlNhDDwuBYCbOS WjPNY4TXKuRFNcSS5RIbXjZTZfDbK2TuqbOOMsUEYrzo6ARPHwQGJxCSV9FTIkWXHgQZWyAWiaUWMoXZ YuLPH0MJUoKKMtPF1MQxPrJDNfCHKxHOFfILGtZRRdlp7MRRRdOUOeDYNfXVOxVDSlKPGfZQvtPQXzPQ H1OFG7ANEpNSMnFE4CHyQqGRQuSYI6WmXjSCEoBBPz ny2UJOUiMDHhYnM4HDNcLYLpPLWfUJgaEWDxIJS5Tst6HFPmXOGuPE9MEnIpSAZnMJL2HalcDQDtLCXp ww8QJUSiTJHsLuqoYkKxRORkNFGtGBbuURHvOJY4IUE3GVWkWXTgDR1ZNhWqLIHfPSmzNCttUYHlFZEs fr7YAAEyHWGpPCokSZEtJUGiNLKhRJwmQOWnHMVjWn b8CSXyKEBeWP6HOgRtSAWvAuT4YNfbBJFrWDDpad7YPEBoZLOfCzsoCINqXCKrFPMrCQlfCWUcJHNqYS Z3CPGwYRMzEM5QQaSfDGMtRuEnRLaeYAZyAIBviu1JMQNdROQtYEc3OoNtVDRqAZXkSAakZTDdZBR9KI ThYAKkMQGrRZ2HPcDsEQQlMhBwDHzvHYPnZELfyz4M vCYyxShfwu5OWPtJVj3CzGikCAD3BCgjRe0evAZpAuOgBWTLXk9AlrOxQQFsQWAWAXfuWIKnLHC5MHHq TdJ3RAorEEUkNXV2NFNbUSV6CHg8NTBxXWS5PnT4ILl2KbPsJSeeNHHpZtAmMrHzOaRoUcv3VTc8KNUi YjY+SP6uLHy+Gb8Rn3BfylI2doKeTKybGDL6Du6HPXZQC7MTUp== ID Date Data Source [id number] 03/22/2021 11:21:41 AM EDT [facility] Name Value Range Interpretation Code Description Data Taylor rce(s) Supporting Document(s) Progress Note [facility] WCHOLz7mZtIYDjOq98/MQPogDXQkv8ZzTDtaFUd4UTwnFLUsJ7HoBUV0rV5gVSL2IQbYNbHeOhSwQYMw lbm [file] B6Nht7InIsEE9FPb6GJkS6YAT7iNNeWx3KAbm8BslPJdXyPV1HPKn= ID Date Data Source [id number] 02/01/2021 04:41:49 PM EDT [facility] Name Value Range Interpretation Code Description Data Taylor rce(s) Supporting Document(s) Progress Note [facility] WAMKZt5kJbCRMaWy38/FVUciONQbv3HnHAvvRCx0YXyiVFAtR1InXDV9gW6gKQH9PBdYKqUcKnGhMHMh lbm [file] ID Date Data Source [id number] 01/21/2021 02:04:10 PM EDT [facility] MR EXTREMITY LOWER WITH AND WITHOUT CONT RAST [id number] RESULTInterpreted by:Douglas Bolden MDEXAM: LEFT ANKLE MRI [...] rce(s) Supporting Document(s) ID Date Data Source [id number] 01/04/2021 08:18:58 AM EDT [facility] Name Value Range Interpretation Code Description Data Taylor rce(s) Supporting Document(s) Progress Note [facility] ITRNNp5sYbMIBpUm41/SBSptFCVtx6FaLDpmMPb7LHvjHCTmR6AkPRS9jH6pPYB5MCoBCvUoPuPzWxF5 lbm [file] ICAgICAgICAgICAgICAgICAgICAgICAgICAgICAgICAgICAgICAgICAgICAgICAgICAgICAgICAgICAg ICAgICAgICAgICAgICAgICAgICAgICAgICAgICANCiAgICAgICAgICAgICAgICAgICAgICAgICAgICAg ICAgICAgICAgICAgICAgICAgICAgICAgICAgICAgIC AgICAgICAgICAgICAgICAgICAgICAgICAgICAgICAgICAgICAgICANCiAgICAgICAgICAgICAgICAgIC AgICAgICAgICAgICAgICAgICAgICAgICAgICAgICAgICAgICAgICAgICAgICAgICAgICAgICAgICAgIC AgICAgICAgICAgICAgICAgICAgICANCiAgICAgICAg ICAgICAgICAgICAgICAgICAgICAgICAgICAgICAgICAgICAgICAgICAgICAgICAgICAgICAgICAgICAg ICAgICAgICAgICAgICAgICAgICAgICAgICAgICAgICANCiAgICAgICAgICAgICAgICAgICAgICAgICAg ICAgICAgICAgICAgICAgICAgICAgICAgICAgICAgIC AgICAgICAgICAgICAgICAgICAgICAgICAgICAgICAgICAgICAgICAgICANCiAgICAgICAgICAgICAgIC AgICAgICAgICAgICAgICAgICAgICAgICAgICAgICAgICAgICAgICAgICAgICAgICAgICAgICAgICAgIC AgICAgICAgICAgICAgICAgICAgICAgICANCiAgICAg ICAgICAgICAgICAgICAgICAgICAgICAgICAgICAgICAgICAgICAgICAgICAgICAgICAgICAgICAgICAg ICAgICAgICAgICAgICAgICAgICAgICAgICAgICAgICAgICANCiAgICAgICAgICAgICAgICAgICAgICAg ICAgICAgICAgICAgICAgICAgICAgICAgICAgICAgIC AgICAgICAgICAgICAgICAgICAgICAgICAgICAgICAgICAgICAgICAgICAgICANCiAgICAgICAgICAgIC AgICAgICAgICAgICAgICAgICAgICAgICAgICAgICAgICAgICAgICAgICAgICAgICAgICAgICAgICAgIC AgICAgICAgICAgICAgICAgICAgICAgICAgICANCiAg ICAgICAgICAgICAgICAgICAgICAgICAgICAgICAgICAgICAgICAgICAgICAgICAgICAgICAgICAgICAg ICAgICAgICAgICAgICAgICAgICAgICAgICAgICAgICAgICAgICANCjw/tYXcD4qzkIGgrbT9D5wgKv9J Jq0HZA5kc1RzJTXnYKteacNfDeoQSzOtSTEqMomZSa z1OEqlKH1FiFGvH9CnI7OkGNdbVG6TFMHaWGQdiFDeNXFaPBEiLqS6SLJqUUljDL9MfXWiCStlFTSsRK LcEfTwFGIzHDToPKSpOX3KHZUiQ859dxAhHr5PAz2HBsTaWW7wia0TUcXvJAYsTpeUTpy5GNprTN7IsS PoiOKnNtOqXHRNSlLaO8rfm5VsPlxjFRIGYUsjTV7P e6QibLKtXDa+Di2OTS6jl4EvDTzyEhWnVO8ujq6NLAeQEgCdC7NarRikQWIiv6ygOGGdHM6xaTYtHPR6 VPybbHCyOTRoVrYpC6hxLNOfRZBNCUHmiVJ7ObK0SxFpBcRoZWv7XYKpLY9zKVcuHZ3QLYH8FQomIATj LBIaE5eZLnMcNKLbLTUvnKzfOW6HEoLmA8ObocRvrQ AyNiAwIFINCj4+PIbancHiXvfKDiH6FPXrp7MdLBz5HA7OENIdAMfiPO7AMNVzcU0zQVsnMN7LObXwPK CvBFYGIfVoL79zfZXbBGi6M9AaLwTnGVYwInloBNRjCGbgAaQwCDGdHjOeSPzrVR1+ID4+CKsqTM1PXC rdunViKVEoVy9BGRTjUYRnLH1qYOVcMWFhX9M1pYkg AJBNEoPkK7vedtkqFY9gAQHzS604oYbzmoNsKDD8TLZzCd6OKRIzSGG5WIRqkZTyQkRqHVZGCCbrQU0H lHHoJBJ9zX6mUCvoXPIxRTLiH5pOXjSfhIwvPU61lQusiaIbvVMwBBt+Za2CIN6bx7LqCUb3jmHkHNqk PXZ2NTazPLFlVFJfOTQmLAU9RCI2FUWAFiOqSFEhAF GcRRzfBANuJCUqor4JLQBxECTxWbI0IaVnETVtSHTvRGanLKGsDGL8IES1ZHMzWQPzKC4SMbUiXZGiGN TdZKkeOEVsRVSpxg5EBKXjGUVbJpz8GRVxYBKgHAHeCYcjLJAfYIM9OUT1EKEhUDPfUD6OPqEfDPZuXH zrJECxUKSbKATtbz1CTRWhLXWdNrZ3EgNaUDMoJDSy TYepEECxBEE6Zpu1EXCaZRShBX3PYmKgZDScQPz5MCRuEDNbWGPuiz8TZKLrKHKvOPp7ZmXeOBCkZYRo VNhzGRJnKRBgPBU4YDFtGOJpTK5VIfIiNBArJIDiRIVnAYDgQFLyjt8WVPOmPVQdBqLxMXBiLTCxMTMo DBbuNEZrFZGgMPZxVZMkRIYzRN1KOqCqBFCgQEW0TG QvYWGtZZZjes5RZBVyIHKhGRGdHZHxLUIaBBMrYGpzIBUeQWC4CqH4AHLhMVXhQT4AFzDuQBVlHrF4XT WaZWEeEFMpmv1CHUExULFeHWdpOGHaQCYoPWGuCQgdLNXfHXU3ELTiQEJyHUNzNK1CMfImTROvIfN3OX ArCVZuQZSosk5HMIJfGLNpPfC5XoXrAIAiYAAbMBfz EBAbIAE8DfDwAHHeJEPnWB4BEuSeJOOiJqZ6GbluMMHeRTDwco0FEWTwORJiKSJvLXKxOYNbUMCuUXna FKApIOF0CLe3YBHqORHwQS7EWyUeVYJyXvxsMWNkUOHbMYBksc2HjJCyuErllj0ETEqESu0OmDsdENY5 MWkvKc2vsMWiQNUbPLUSVn3MooQlNCYxDUBVIZqwGA ZsOCJnR5K1ZRShPbyxOSL7FXp8CTK2OVReGKE4WnHdIwjoWnK2FBC5EuD9HCOvRPKiDOg1NVxtUdQ2V6 O8QfhhOzSaLSD+QW1ySFg+Dw9Ef5EhxhQ0hbMvPWlkMRH8UX4ZAWFJE3UIJp== ID Date Data Source [id number] 01/04/2021 08:00:59 AM EDT [facility] XR ANKLE 2 VIEWS [id number] RESULTInterp reted by:Madhav Mijares MDIndication: History of [...] rce(s) Supporting Document(s) ID Date Data Source [id number] 01/04/2021 07:58:53 AM EDT [facility] XR FOOT 3 OR MORE VIEWS [id number] RESUL TInterpreted by:Madhav Mijares MDIndication: Recurrent PVNS/giant [...] rce(s) Supporting Document(s) ID Date Data Source [id number] 11/30/2020 04:07:53 PM EDT [facility] Name Value Range Interpretation Code Description Data Taylor rce(s) Supporting Document(s) Progress Note [facility] THMOSk2yKsYIKjTm66/CWWwbJNTjq8BnIBczKMd3MDbuXRWlN3QiVNT6lK5yCQU4SOyKVsXgMrInFuBb lbm [file] IwCUlaGHVqFCB5TgA6FsJvS6ZtKtCtET0SFx5UPjJ3NQI6jZScZc9FOiH7CXHMIiIdQK6RQHz= Procedure Social History Code Duration Value Status Description Data Source(s ) Alcohol intake 01/04/2021 12:00:00 AM EDT Current non-d kaveh of alcohol (finding) completed Current non-drinker of alcohol (finding) [facility] Tobacco use and exposure 01/04/2021 12:00:00 AM EDT Never used co mpleted Never used [facility] Smoking 01/04/2021 12:00:00 AM EDT Never smoker completed Never s [facility]
[2021-05-08 21:24] LABS: MAGNESIUM LEVEL 2.2 MG/DL (1.8-2.4)
[2021-05-08 22:11] LABS: RSV AMPLIFICATION NEGATIVE (NEGATIVE)
[2021-05-08] MEDS ORDERED: HOME MED LIST COMPLETE! XX SCH (23:20)
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
[2021-05-09] MEDS ORDERED: NS 1,000 ML IV SCH ×2 (00:40→10:15)
[2021-05-09 07:23] LABS: BASO % 0.4 % (0.0-1.0); EOS # 0.1 10^3/uL (0.0-0.5); EOS % 1.5 % (0.0-3.0); HEMATOCRIT 44.3 % (42.0-52.0); HEMOGLOBIN 14.3 g/dl (13.5-17.5); LYMPH # 1.7 10^3/uL (1.5-5.0); LYMPH % 36.7 % (24.0-44.0); MEAN CORPUSCULAR HEMOGLOBIN 28.1 pg (27.0-33.0); MEAN CORPUSCULAR HGB CONC 32.3 g/dl (32.0-36.5); MONO # 0.4 10^3/uL (0.0-0.8); MONO % 8.6 % (2.0-8.0); NEUTROPHILS # 2.5 10^3/uL (1.5-8.5); NEUTROPHILS % 52.8 % (36.0-66.0); PLATELET COUNT, AUTOMATED 269 10^3/uL (150-450); RED BLOOD COUNT 5.09 10^6/uL (4.30-6.10); WHITE BLOOD COUNT 4.7 10^3/uL (4.0-10.0)
[2021-05-09 07:38] LABS: BLOOD UREA NITROGEN 12 MG/DL (7-18); CARBON DIOXIDE LEVEL 28 MEQ/L (21-32); CHLORIDE LEVEL 109 MEQ/L (98-107); CREATININE FOR GFR 1.01 MG/DL (0.70-1.30); GLOMERULAR FILTRATION RATE > 60.0 (>60); GLUCOSE, FASTING 84 MG/DL (70-100); POTASSIUM SERUM 3.9 MEQ/L (3.5-5.1); SODIUM LEVEL 141 MEQ/L (136-145)
[2021-05-09] MEDS ORDERED: NS 1,000 ML IV ONE (10:10)
--- NOTE | 2021-05-09 11:46 | IPN ---
PROGRESS NOTE DATE: 05/09/2021 SUBJECTIVE: Patient is seen and examined at the bedside. He complains of left foot pain which he says is manageable and that he only needs to do exercises for that. He says that he usually takes Tylenol 800 mg, maybe once a day with good control. He is declining any medications for now. No shortness of breath despite IV fluids. Total CK only slightly elevated at 329. Patient is agreeable to seeing a psychiatrist and says he was attempting to kill himself from a drug overdose yesterday. OBJECTIVE: VITAL SIGNS: Temperature 97.9, pulse 52, respiratory rate 16, blood pressure is 118/70. GENERAL: Awake, alert and oriented x3, answering questions appropriately. LUNGS: Clear to auscultation. No wheezes, rales or rhonchi. HEART: S1 and S2, sinus bradycardia. ABDOMEN: Soft, nontender and nondistended. EXTREMITIES: Well-healed surgical scar in the left foot, a full range of motion. Dorsalis pedis, posterior tibialis are both noted. LABORATORY DATA/IMAGING STUDIES: All been reviewed. ASSESSMENT AND PLAN: This is a 25-year-old male admitted on 05/08 with complaints of suicide attempt due to drug overdose. Patient's toxicology screen was positive for opiates. CK was elevated at 368, Poison Control was contacted with recommendations for supportive care and telemetry monitoring. Telemetry was unremarkable overnight. IMPRESSION: 1. Suicide attempt by drug overdose. Patient is currently medically stable after being monitored for 24 hours on telemetry, suicide precautions with 1:1 sitter, deescalation techniques have been provided. Patient had an overdose and tramadol on hydrocodone. 2. Mild rhabdomyolysis, aggressive IV hydration, serial PTT testing. 3. Tobacco abuse, admits to vaping at home, nicotine patch if needed. Smoking cessation has been provided. 4. Disposition: Patient is medically stable. Defer to psychiatrist for [facility] admission.
[2021-05-09 16:46] VITALS: BP 140/65
[2021-05-09 16:48] VITALS: O2SAT 96
[2021-05-09] MEDS ORDERED: ACET-683 PO (18:51)
[2021-05-09] MEDS ORDERED: INFLUENZA QUADRIVALENT PF VACCINE 0.5ML SYRINGE IM SCH (19:30)
[2021-05-09 20:00] VITALS: BP 162/68
[2021-05-09] MEDS: NS 1,000 ML IV SCH (20:57)
[2021-05-10] VITALS: BP 140/64
[2021-05-10] MEDS: NS 1,000 ML IV SCH (03:51)
[2021-05-10 04:00] VITALS: BP 126/69
[2021-05-10 06:25] LABS: BASO % 0.6 % (0.0-1.0); EOS # 0.1 10^3/uL (0.0-0.5); EOS % 2.1 % (0.0-3.0); HEMOGLOBIN 14.1 g/dl (13.5-17.5); LYMPH # 1.8 10^3/uL (1.5-5.0); LYMPH % 37.6 % (24.0-44.0); MEAN CORPUSCULAR HEMOGLOBIN 28.1 pg (27.0-33.0); MEAN CORPUSCULAR VOLUME 87.8 fl (80.0-96.0); MONO # 0.4 10^3/uL (0.0-0.8); MONO % 7.2 % (2.0-8.0); NEUTROPHILS # 2.6 10^3/uL (1.5-8.5); NEUTROPHILS % 52.3 % (36.0-66.0); PLATELET COUNT, AUTOMATED 249 10^3/uL (150-450); RED BLOOD COUNT 5.01 10^6/uL (4.30-6.10); WHITE BLOOD COUNT 4.9 10^3/uL (4.0-10.0)
[2021-05-10 06:53] LABS: BLOOD UREA NITROGEN 11 MG/DL (7-18); CALCIUM LEVEL 9.1 MG/DL (8.5-10.1); CARBON DIOXIDE LEVEL 27 MEQ/L (21-32); CHLORIDE LEVEL 108 MEQ/L (98-107); CREATININE FOR GFR 0.96 MG/DL (0.70-1.30); GLOMERULAR FILTRATION RATE > 60.0 (>60); GLUCOSE, FASTING 88 MG/DL (70-100); POTASSIUM SERUM 4.4 MEQ/L (3.5-5.1); SODIUM LEVEL 140 MEQ/L (136-145)
[2021-05-10 07:16] VITALS: BP 134/80
[2021-05-10 11:48] VITALS: BP 139/75
--- NOTE | 2021-05-10 14:03 | DSES ---
DISCHARGE SUMMARY DATE OF ADMISSION: 05/08/2021 DATE OF DISCHARGE: 05/10/2021 The patient is discharged today to the Inpatient Mental Health Unit. PRIMARY DISCHARGE DIAGNOSIS: 1. Suicide attempt by drug overdose. 2. Drug overdose with tramadol and hydrocodone. 3. Mild rhabdomyolysis. 4. Active tobacco abuse. DISCHARGE MEDICATIONS: 1. Tylenol 500 mg q. 6 hourly as needed for pain. DISCHARGE INSTRUCTIONS: Inpatient Mental Health Unit admission. ACCEPTING PHYSICIAN: NOLAN ROCHE MD HOSPITAL COURSE: This is a 25-year-old male admitted on 05/08/2021 with complaints of intentional drug overdose with tramadol and hydrocodone after having a heated discussion with his to discuss divorce. Per Poison Control, the patient was to be monitored, toxicology screen was positive for opiates, acetaminophen was 2.5, CK was elevated at 368. Telemetry was unremarkable. Patient was given intravenous fluids for two days with improvement in creatinine with improvement in total CK to 274. Patient had no complaints of shortness of breath. No other issues or attempts of suicide during this hospital stay. He had a sitter throughout the entire admission. PHYSICAL EXAMINATION: VITAL SIGNS: On discharge, temperature is 97.5, pulse is 71, respiratory rate is 18, blood pressure is 134/80, 99% on room air. GENERAL: Awake, alert and oriented x3 answering questions appropriately. HEENT: Moist mucous membranes. Tongue is midline. He speaks in full sentences. LUNGS: Clear to auscultation. No wheezing, rales or rhonchi. HEART: S1 and S2, sinus rhythm. ABDOMEN: Soft, nontender and nondistended. Positive bowel sounds. EXTREMITIES: No cyanosis, clubbing or pitting edema. DISCHARGE LABORATORY DATA/MICROBIOLOGY/IMAGING STUDIES: Please see the chart. MTDD
[2021-05-10 15:28] VITALS: BP 142/68
[2021-05-10 19:40] VITALS: BP 160/82
[2021-05-11 01:00] VITALS: BP 131/87
--- NOTE | 2021-05-11 07:41 | ECGEPIP ---
[facility] - ED Test Date: 2021-05-08 Pat Name: VINICIO CBEALLOS JR Department: Room: [place] [address] Gender: Male [employer] Reporter: ROMAN : 1995 Requested By: Savi Camacho Order Number: [id number] Reading MD: Savi Camacho Measurements Intervals Heth Rate: 89 P: 73 VA: 156 QRS: 85 QRSD: 96 T: 48 QT: 358 QTc: 435 Interpretive Statements Normal sinus rhythm with sinus arrhythmia irbbb No prior Electronically Signed on 05-11-2021 7:41:17 EST by Savi Camacho
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
--- NOTE | 2021-05-13 15:28 | MHDSPDOC ---
[facility] Discharge Summary Discharge Summary DATE OF ADMISSION: May 08, 2021 at 20:04 DATE OF DISCHARGE: May 11, 2021 at 01:23 DISCHARGE DIAGNOSES: 1. . 2. . REASON FOR ADMISSION: CONSULTANTS INVOLVED: TREATMENT AND PROGRESS ON THE UNIT : . HOSPITAL COURSE: DISCHARGE ASSESSMENT: MENTAL STATUS EXAMINATION ON DISCHARGE: Patient is a -year old male, who is . Speech is . Language skills are . Thought processes including: . Thought content: . Abstract reasoning, and computation: . Description of associations: . Description of abnormal or psychotic thoughts: . Judgment: . Insight: . Orientation to . Recent and remote memory: . Attention span and concentration: . Language: . Fund of knowledge: . Mood: . Affect: . MEDICATIONS ON DISCHARGE: None PLAN/FOLLOWUP ARRANGEMENTS: [facility] The amount of time spent in the coordination of care for this patient was approximately 25 minutes. 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
== END 2021-05-11 01:23 | DRG 271 ==
LOC: M ED 17:46 → EDBD 17:46 → M ED INP 20:04 → ENRESERV 05-09 14:20 → M PCU 05-09 16:15 → M PSY 05-11 01:33 → M PCU 05-11 01:33
PROVIDERS: ADMIT Internal Medicine; ATTEND General Practice
DX: T40.2X2A Poisoning by other opioids, intentional self-harm, initial encounter (principal); M62.82 Rhabdomyolysis; T40.422A Poisoning by tramadol, intentional self-harm, initial encounter; F17.200 Nicotine dependence, unspecified, uncomplicated; Z63.0 Problems in relationship with spouse or partner

== ENCOUNTER 2021-05-10 01:30 | Inpatient (IN) | payer OTHER ==
[~2021-05-10 01:30] MED LIST changes: +ACET-683 PO
[2021-05-11] MEDS ORDERED: MAALOX 30 ML SUSP *UDC PO PRN (00:50)
[2021-05-11] MEDS ORDERED: ACETAMINOPHEN TAB 650MG DOSE (2X325MG) PO PRN (00:50)
[2021-05-11] MEDS ORDERED: LORazepam 1 MG TAB PO PRN (00:50)
[2021-05-11] MEDS ORDERED: MOM 30ML SUSPENSION UDC PO PRN (00:50)
[2021-05-11 02:32] VITALS: BP 142/88
[2021-05-11 18:55] VITALS: BP 125/82
[2021-05-11] MEDS: traZODone 50 MG TAB PO PRN (22:32)
[2021-05-12 06:34] VITALS: BP 142/68
[2021-05-12 18:42] VITALS: BP 143/65
[2021-05-12] MEDS: traZODone 50 MG TAB PO PRN (21:32)
[2021-05-13 06:32] VITALS: BP 161/98
== END 2021-05-13 12:48 | disposition home or self-care (01) | DRG 880 ==
LOC: M PSY 01:30 → UNDOADMIN 01:30 → M PSY 05-11 01:30 → UNDOADMIN 05-11 01:30
PROVIDERS: ADMIT Psychiatry & Neurology Psychiatry; ATTEND Psychiatry & Neurology Psychiatry
DX: F41.1 Generalized anxiety disorder (principal); Z63.0 Problems in relationship with spouse or partner

== ENCOUNTER → 2021-10-22 | Outpatient (CLI) | payer OTHER | LOC: M WUC 12:08 | DX: S92.515A Nondisplaced fracture of proximal phalanx of left lesser toe(s), initial encounter for closed fracture (principal); X58.XXXA Exposure to other specified factors, initial encounter; Y92.9 Unspecified place or not applicable; Y93.9 Activity, unspecified; Y99.9 Unspecified external cause status ==

== ENCOUNTER → 2023-07-28 | Outpatient (REF) | LOC: M PLAIMG 12:22 | PROVIDERS: ATTEND Internal Medicine | DX: R52 Pain, unspecified (principal) ==

== ENCOUNTER → 2024-01-21 | Outpatient (CLI) | payer OTHER ==
[~2024-01-21] MED LIST changes: +PROHANCE 279.3MG/ML 15ML VIAL ONE; +PROHANCE 279.3MG/ML 5ML VIAL ONE
== END ==
LOC: M PLAIMG 15:02
PROVIDERS: ATTEND Podiatrist Foot & Ankle Surgery
DX: M25.572 Pain in left ankle and joints of left foot (principal)
CPT/HCPCS: 73723; A9576

== ENCOUNTER 2024-05-23 21:43 | Emergency (ER) | payer OTHER ==
[~2024-05-23] VITALS: Ht 182.9 cm; Wt 81.1 kg
[~2024-05-23 21:43] MED LIST changes: -PROHANCE 279.3MG/ML 15ML VIAL ONE; -PROHANCE 279.3MG/ML 5ML VIAL ONE
[2024-05-23] MEDS: BACTRIM 160MG/800MG DS TAB PO ONE (23:50)
[2024-05-23 23:52] LABS: BASO % 0.3 % (0.0-1.0); EOS # 0.1 10^3/uL (0.0-0.5); EOS % 1.1 % (0.0-3.0); HEMATOCRIT 43.2 % (42.0-52.0); HEMOGLOBIN 14.1 g/dl (13.5-17.5); LYMPH % 14.3 % (24.0-44.0); MEAN CORPUSCULAR HGB CONC 32.6 g/dl (32.0-36.5); MEAN CORPUSCULAR VOLUME 88.9 fl (80.0-96.0); MONO # 0.4 10^3/uL (0.0-0.8); MONO % 6.3 % (2.0-8.0); NEUTROPHILS # 5.5 10^3/uL (1.5-8.5); NEUTROPHILS % 77.7 % (36.0-66.0); PLATELET COUNT, AUTOMATED 229 10^3/uL (150-450); RED BLOOD COUNT 4.86 10^6/uL (4.30-6.10)
[2024-05-24 00:26] LABS: BLOOD UREA NITROGEN 10 MG/DL (9-23); CALCIUM LEVEL 9.2 MG/DL (8.5-10.1); CARBON DIOXIDE LEVEL 29 MMOL/L (20-31); CHLORIDE LEVEL 108 MMOL/L (98-107); CREATININE FOR GFR 0.88 MG/DL (0.70-1.30); GLOMERULAR FILTRATION RATE > 60.0 (>60); GLUCOSE, FASTING 102 MG/DL (60-100); POTASSIUM SERUM 3.7 MMOL/L (3.5-5.1); SODIUM LEVEL 142 MMOL/L (136-145)
[2024-05-24] MEDS ORDERED: BACT800T5 PO (01:26)
[2024-05-24 01:45] VITALS: BP 148/72; TEMP 97.2; O2SAT 98
== END 2024-05-24 01:45 | disposition home or self-care (01) ==
LOC: M ED 21:43
DX: L03.317 Cellulitis of buttock (principal); F17.200 Nicotine dependence, unspecified, uncomplicated; Z79.1 Long term (current) use of non-steroidal anti-inflammatories (NSAID); Z79.2 Long term (current) use of antibiotics

== ENCOUNTER → 2025-05-04 | Outpatient (CLI) | payer OTHER ==
[~2025-05-04] MED LIST changes: +BACT800T5 PO
== END ==
LOC: M RAD 14:22
PROVIDERS: ATTEND Nurse Practitioner Family
DX: R42 Dizziness and giddiness (principal)